=== PATIENT | male | born 1980 | race American Indian/Alaskan Native ===

== ENCOUNTER 2021-08-28 17:29 | Emergency (ER) | payer OTHER ==
[2021-08-28 17:54] VITALS: BP 153/86
[2021-08-28 18:32] LABS: Basophils % (Auto) 0.3 % (0.0-1.8); Eosinophils # (Auto) 0.1 K/mm3 (0.0-0.4); Eosinophils % (Auto) 2.2 % (0.0-4.3); Hematocrit 40.2 % (35.5-45.6); Hemoglobin 13.4 gm/dl (11.8-15.2); Lymphocytes # (Auto) 1.9 K/mm3 (1.2-5.4); Lymphocytes % (Auto) 29.1 % (13.4-35.0); Mean Corpuscular HGB Conc 33 % (32-34); Mean Corpuscular Volume 96 fl (84-94); Monocytes # (Auto) 0.7 K/mm3 (0.0-0.8); Monocytes % (Auto) 10.4 % (0.0-7.3); Platelet Count 290 K/mm3 (140-440); Red Blood Count 4.19 M/mm3 (3.65-5.03); Red Cell Distribution Width 12.7 % (13.2-15.2)
[2021-08-28 18:47] LABS: Alanine Aminotransferase 9 units/L (7-56); Albumin 4.4 g/dL (3.9-5); BUN/Creatinine Ratio 18; Blood Urea Nitrogen 18 mg/dL (9-20); Calcium 9.7 mg/dL (8.4-10.2); Hemolysis Index 2
--- NOTE | 2021-08-28 19:12 | Emergency Department Report ---
ED General Adult HPI - General Chief complaint: Hypoglycemia Stated complaint: DIABETIC Time Seen by Provider: 08/28/21 17:57 Source: patient Mode of arrival: Ambulatory Limitations: Language Barrier - History of Present Illness Initial comments: This is a 40-year-old male nontoxic, well nourished in appearance, no acute signs of distress presents to the ED with c/o of hypoglycemia that occurred prior to arrival. Patient also is out of his insulin medication and is requesting for a refill. Patient stated developed some weakness and did a fingerstick which showed low readings. Patient otherwise denies any complaints or symptoms currently. Patient denies any chest pain, shortness of breath, fever, chills, nausea, vomiting, headache, stiff neck, abdominal pain, back pain, numbness or tingling. Patient denies any dizziness. Patient denies any allergies. -: This afternoon Radiation: non-radiation Severity scale (0 -10): 0 Improves with: none Worsens with: none Associated Symptoms: denies other symptoms. denies: confusion, chest pain, cough, diaphoresis, fever/chills, headaches, loss of appetite, malaise, nausea/vomiting, rash, seizure, shortness of breath, syncope, weakness Treatments Prior to Arrival: none - Related Data Previous Rx's Medication Instructions Recorded Last Taken Type Insulin Glargine,Hum.rec.anlog 35 unit SQ DAILY #1 insuln.pen 08/28/21 Unknown Rx [Basaglar Kwikpen U-100] Allergies Allergy/AdvReac Type Severity Reaction Status Date / Time Unable to Assess Allergy Unverified 08/28/21 17:55 ED Review of Systems ROS: Stated complaint: DIABETIC Other details as noted in HPI Comment: All other systems reviewed and negative Constitutional: denies: chills, fever Eyes: denies: eye pain, eye discharge, vision change ENT: denies: ear pain, throat pain Respiratory: denies: cough, shortness of breath, wheezing Cardiovascular: denies: chest pain, palpitations Endocrine: no symptoms reported Gastrointestinal: denies: abdominal pain, nausea, diarrhea Genitourinary: denies: urgency, dysuria Musculoskeletal: denies: back pain, joint swelling, arthralgia Skin: denies: rash, lesions Neurological: denies: headache, weakness, paresthesias Psychiatric: denies: anxiety, depression Hematological/Lymphatic: denies: easy bleeding, easy bruising ED Past Medical Hx - Past Medical History Previous Medical History?: Yes Hx Diabetes: Yes - Surgical History Past Surgical History?: No - Medications Home Medications: Home Medications Medication Instructions Recorded Confirmed Last Taken Type Insulin Glargine,Hum.rec.anlog 35 unit SQ DAILY #1 insuln.pen 08/28/21 Unknown Rx [Basaglar Jaxonikpen U-100] ED Physical Exam - General Limitations: Language Barrier General appearance: alert, in no apparent distress - Head Head exam: Present: atraumatic, normocephalic - Eye Eye exam: Present: normal appearance - ENT ENT exam: Present: mucous membranes moist - Neck Neck exam: Present: normal inspection - Respiratory Respiratory exam: Present: normal lung sounds bilaterally. Absent: respiratory distress - Cardiovascular Cardiovascular Exam: Present: regular rate, normal rhythm. Absent: systolic murmur, diastolic murmur, rubs, gallop - GI/Abdominal GI/Abdominal exam: Present: soft, normal bowel sounds - Rectal Rectal exam: Present: deferred - Extremities Exam Extremities exam: Present: normal inspection - Back Exam Back exam: Present: normal inspection - Neurological Exam Neurological exam: Present: alert, oriented X3 - Psychiatric Psychiatric exam: Present: normal affect, normal mood - Skin Skin exam: Present: warm, dry, intact, normal color. Absent: rash ED Course Vital Signs 08/28/21 17:53 Temperature 97.6 F Pulse Rate 95 H Respiratory 16 Rate Blood Pressure 153/86 [Right] O2 Sat by Pulse 99 Oximetry ED Medical Decision Making - Lab Data Result diagrams: 08/28/21 18:07 08/28/21 18:07 Lab Results 08/28/21 08/28/21 08/28/21 Range/Units 17:52 18:07 18:07 WBC 6.4 (4.5-11.0) K/mm3 RBC 4.19 (3.65-5.03) M/mm3 Hgb 13.4 (11.8-15.2) gm/dl Hct 40.2 (35.5-45.6) % MCV 96 H (84-94) fl MCH 32 (28-32) pg MCHC 33 (32-34) % RDW 12.7 L (13.2-15.2) % Plt Count 290 (140-440) K/mm3 Lymph % (Auto) 29.1 (13.4-35.0) % [place] % (Auto) 10.4 H (0.0-7.3) % Eos % (Auto) 2.2 (0.0-4.3) % Baso % (Auto) 0.3 (0.0-1.8) % Lymph # (Auto) 1.9 (1.2-5.4) K/mm3 [place] # (Auto) 0.7 (0.0-0.8) K/mm3 Eos # (Auto) 0.1 (0.0-0.4) K/mm3 Baso # (Auto) 0.0 (0.0-0.1) K/mm3 Seg Neutrophils % 58.0 (40.0-70.0) % Seg Neutrophils # 3.7 (1.8-7.7) K/mm3 Sodium 136 L (137-145) mmol/L Potassium 4.0 (3.6-5.0) mmol/L Chloride 101.5 (98-107) mmol/L Carbon Dioxide 22 (22-30) mmol/L Anion Gap 17 mmol/L BUN 18 (9-20) mg/dL Creatinine 1.0 (0.8-1.3) mg/dL Estimated GFR > 60 ml/min BUN/Creatinine Ratio 18 % Glucose 96 (75-100) mg/dL POC Glucose 58 L (70-105) mg/dL Calcium 9.7 (8.4-10.2) mg/dL Total Bilirubin 0.60 (0.1-1.2) mg/dL AST 15 (5-40) units/L ALT 9 (7-56) units/L Alkaline Phosphatase 80 (35-129) units/L Total Protein 7.8 (6.3-8.2) g/dL Albumin 4.4 (3.9-5) g/dL Albumin/Globulin Ratio 1.3 % - Medical Decision Making 40-year-old male that presents with medication refill and hyperglycemia. Patient is stable and was examined by me. Labs has been obtained. Patient received apple juice which glucose levels went up to 96 from 50s. Patient does have a empty box of his insulin which I will refill today. Otherwise physical exam is unremarkable. Patient was instructed to follow-up with a primary care doctor in 3-5 days or if symptoms worsen and continue return to emergency room as soon as possible. At time of discharge, the patient does not seem toxic or ill in appearance. No acute signs of distress noted. Patient agrees to discharge treatment plan of care. No further questions noted by the patient. Critical care attestation.: If time is entered above; I have spent that time in minutes in the direct care of this critically ill patient, excluding procedure time. ED Disposition Clinical Impression: Hypoglycemia, Medication refill Disposition: HOME / SELF CARE / HOMELESS Is pt being admited?: No Does the pt Need Aspirin: No Condition: Stable Instructions: Hypoglycemia, Blood Glucose Monitoring, Adult Additional Instructions: Follow-up with a primary care doctor in 3-5 days or if symptoms worsen and continue return to emergency room as soon as possible. Prescriptions: Insulin Glargine,Hum.rec.anlog [Jose Mcgovern U-100] 35 unit SQ DAILY #1 insuln.pen Referrals: PRIMARY CAREMD [Referring] - 3-5 Days MINOR TRAYLOR MD [Staff Physician] - 3-5 Days Time of Disposition: 19:24
== END 2021-08-28 20:04 | disposition home or self-care (01) ==
LOC: ED 17:29
DX: E11.649 Type 2 diabetes mellitus with hypoglycemia without coma (principal); Z76.0 Encounter for issue of repeat prescription
CPT/HCPCS: 36415; 80053; 82962; 85025; 99283